=== PATIENT | female | born 1980 | race Caucasian/White ===

== ENCOUNTER → 2021-01-28 | Outpatient (CLI) | payer OTHER ==
[~2021-01-28] MED LIST: PHENERGAN 25 MG25 M1 PO; PHENERGAN25 M2 RC; REGLAN 5 MG TAB5 M1 PO; ZOFRAN8 MG PO
== END ==
LOC: ULTRA 09:13
PROVIDERS: ATTEND Neuromusculoskeletal Medicine & OMM
DX: R10.9 Unspecified abdominal pain (principal); R14.0 Abdominal distension (gaseous)